=== PATIENT | female | born 1960 | race African-American/Black ===

== ENCOUNTER 2018-10-16 19:43 | Emergency (ER) | payer OTHER ==
[~2018-10-16] VITALS: Ht 162.6 cm; Wt 80.3 kg
[~2018-10-16 19:43] MED LIST: ALBUTEROL SULF8.5 GM INH; AMOXICILLIN500 MG PO; ATENOLOL50 MG ORAL; AZITHROMYCIN250 MG ORAL; CLARITHROMYCIN500 MG PO; DOCUSATE SODIU100 MG PO; HYDROCHLOROTH12.5 M2 ORAL; IBUPROFEN600 MG PO; KENALOG 0.1% CR15 GM TOPIC; OMEPRAZOLE20 M3 PO; PRILOSEC20 MG ORAL; TENORMIN25 MG PO; TENORMIN50 MG PO; VICODIN 5-5001 EACH PO
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
[2018-10-16 20:01] VITALS: BP 137/80
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
[2018-10-16] MEDS ORDERED: VOLTAREN100 G1 TP (20:56)
[2018-10-16] MEDS ORDERED: ZOFRAN4 M1 ORAL (21:06)
[2018-10-16 21:07] VITALS: BP 137/80
[2018-10-16] MEDS ORDERED: metroNIDAZOLE 500mg tab ORAL ONE (21:15)
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
== END 2018-10-16 21:18 | disposition home or self-care (01) ==
LOC: EMR 20:10
DX: S39.012A Strain of muscle, fascia and tendon of lower back, initial encounter (principal); S00.93XA Contusion of unspecified part of head, initial encounter; S46.911A Strain of unspecified muscle, fascia and tendon at shoulder and upper arm level, right arm, initial encounter; S16.1XXA Strain of muscle, fascia and tendon at neck level, initial encounter; V43.52XA Car driver injured in collision with other type car in traffic accident, initial encounter; Y92.410 Unspecified street and highway as the place of occurrence of the external cause; K21.9 Gastro-esophageal reflux disease without esophagitis; I34.1 Nonrheumatic mitral (valve) prolapse
CPT/HCPCS: 70450; 99284

== ENCOUNTER 2019-04-27 07:31 | Emergency (ER) | payer OTHER ==
[~2019-04-27] VITALS: Ht 160 cm; Wt 78.5 kg
[~2019-04-27 07:31] MED LIST changes: +VOLTAREN100 G1 TP; +ZOFRAN4 M1 ORAL
[2019-04-27] MEDS ORDERED: ATENOLOL-CHLOR1 EAC1 ORAL (07:42)
[2019-04-27 07:44] VITALS: BP 140/76
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
--- NOTE | 2019-04-27 08:02 | Emergency Room Report ---
History of Present Illness General Chief Complaint: Pain Source: Medical Record Present Illness HPI 59-year-old female with right arm pain x1 month, patient reclassified said it has been ongoing for quite some time, she states it is worse in the morning and in the evening after using her right arm a lot, she has a history of polio, denies any chest pain or shortness of breath, she states activity worsens the achy pain in her right shoulder alleviated with rest, severity is moderate, intermittent. Allergies: Coded Allergies: MEPERIDINE HCL (Verified Allergy, 11/01/12) Patient History Past Medical History: see triage record Reviewed Nursing Documentation: PMH: Agreed; PSxH: Agreed Nursing Documentation-PMH Past Medical History: No History, Except For Hx Hypertension: Yes - MITRAL VALVE PROLAPSE, ACID REFLUX Hx Gastrointestinal Problems: Yes - bacterial infection in the intestine, gerd Review of Systems All Other Systems: negative except mentioned in HPI Physical Exam Vital Signs Date Time Temp Pulse Resp B/P (MAP) Pulse Ox O2 Delivery O2 Flow Rate FiO2 04/27/19 07:38 98.1 72 18 140/76 (97) 99 Room Air Sp02 EP Interpretation: reviewed, normal General Appearance: well appearing, no apparent distress, alert Head: normocephalic, atraumatic Eyes: bilateral eye PERRL, bilateral eye EOMI ENT: uvula midline, moist mucus membranes Neck: supple, thyroid normal, supple/symm/no masses Respiratory: lungs clear, no respiratory distress, no retraction, no accessory muscle use Cardiovascular #1: normal peripheral pulses, regular rate, rhythm, no edema, no gallop, no murmur Gastrointestinal: non tender, soft, no guarding, no rebound Musculoskeletal: normal inspection, other - Right shoulder: 2+ radial pulses tenderness to palpation at the proximal bicep tendon, empty can test positive range of motion intact no palpable deformity Neurologic: alert, oriented x3 Psychiatric: mood/affect normal Skin: no rash, warm/dry Medical Decision Making Diagnostic Impression: Primary Impression: Right shoulder pain Qualified Codes: M25.511 - Pain in right shoulder; G89.29 - Other chronic pain Additional Impression: Tendinitis ER Course 59 year-old female presents with right shoulder pain consistent with tendinitis , bursitis counseled patient to follow-up with her PCP get a referral to physical therapy chronic pain management and rheumatology Disposition home with return precautions Last Vital Signs Date Time Temp Pulse Resp B/P (MAP) Pulse Ox O2 Delivery O2 Flow Rate FiO2 04/27/19 07:44 98.1 89 18 140/76 99 Room Air Disposition: HOME, SELF-CARE Condition: Stable Referrals: [facility] Patient Instructions: Biceps Tendon Tendinitis (Proximal) and Tenosynovitis With Rehab-SportsMed, Generic Shoulder Exercises-SportsMed, Shoulder Pain, Easy- to-Read, Shoulder Range of Motion Exercises Additional Instructions: The patient was provided with discharge instructions, notified to follow-up with a primary care doctor and or specialist in the next 24-48 hours, and to return to the ED if they have worsening of their symptoms. Please note that this report is being documented using Infogram technology. This can lead to erroneous entry secondary to incorrect interpretation by the dictating instrument. HAVE YOUR PCP REFER YOU TO PHYSICAL THERAPY REMOTE SENSING PROGRAM MANAGER CHRONIC PAIN MANAGEMENT DOCTOR Blayne Spence MD Apr 27, 2019 08:02
[2019-04-27 08:10] VITALS: BP 137/80
--- NOTE | 2019-04-27 08:10 | NUR ---
ED Nurse Note: Pt cleared by health care Provider for discharge. DC instructions/physical therapy referal was given and explained to pt and verbalized understanding of teachings. All medical deviecs such as ID band removed. Pt is AAO x4, ambulatory and left with all personal belongings.
== END 2019-04-27 08:10 | disposition home or self-care (01) ==
LOC: EMR 07:56
DX: M75.21 Bicipital tendinitis, right shoulder (principal); M25.511 Pain in right shoulder; G89.29 Other chronic pain
CPT/HCPCS: 99282